=== PATIENT | male | born 1955 | race Caucasian/White ===

== ENCOUNTER 2018-08-09 12:02 | Day surgery (SDC) | payer BC, OTHER ==
[~2018-08-09] VITALS: Ht 180.3 cm; Wt 104.3 kg
[~2018-08-09 12:02] MED LIST: ASPI81TA21 PO; ATOR1TAB21 PO; CYCL5TAB PO; LANTINJ4 SC; LISI10TA4 PO; MAGN200T PO; METF10004 PO; NS 1,000 ML IV ONE; RABE1TAB PO; TRUL0.5I SC
[2018-08-09] MEDS ORDERED: PROPOFOL 200 MG/20 ML VIAL As Ordered ONE (14:06)
[2018-08-09] MEDS ORDERED: LIDOCAINE 2% INJ 100 MG/5 ML SDV (FOR ANES.) As Ordered ONE (14:06)
--- NOTE | 2018-08-09 14:25 | ROOR ---
Patient Name: Nghia Flores Procedure Date: 08/09/2018 1:55 PM Date of : 1955 Age: 63 Room: [facility] Gender: Male Note Status: Finalized Procedure: Colonoscopy Indications: Screening for colorectal malignant neoplasm Providers: Tuan Hampton Jr, MD Referring MD: Sirisha GUTIERREZ MD Requesting Provider: Medicines: Propofol per Anesthesia Complications: No immediate complications. Procedure: Pre-Anesthesia Assessment: - Prior to the procedure, a History and Physical was performed, and patient medications and allergies were reviewed. The patient is competent. The risks and benefits of the procedure and the sedation options and risks were discussed with the patient. All questions were answered and informed consent was obtained. Patient identification and proposed procedure were verified by the physician and the nurse in the pre-procedure area and in the procedure room. Mental Status Examination: alert and oriented. Airway Examination: normal oropharyngeal airway and neck mobility. Respiratory Examination: clear to auscultation. CV Examination: normal. ASA Grade Assessment: II - A patient with mild systemic disease. After reviewing the risks and benefits, the patient was deemed in satisfactory condition to undergo the procedure. The anesthesia plan was to use moderate sedation / analgesia (conscious sedation). Immediately prior to administration of medications, the patient was re-assessed for adequacy to receive sedatives. The heart rate, respiratory rate, oxygen saturations, blood pressure, adequacy of pulmonary ventilation, and response to care were monitored throughout the procedure. The physical status of the patient was re-assessed after the procedure. The Colonoscope was introduced through the anus and advanced to the cecum, identified by appendiceal orifice and ileocecal valve. The colonoscopy was performed without difficulty. The patient tolerated the procedure well. The quality of the bowel preparation was adequate. Findings: The recto-sigmoid colon, sigmoid colon, descending colon, transverse colon, ascending colon, cecum, appendiceal orifice and ileocecal valve appeared normal. A diminutive polyp was found in the rectum. The polyp was removed with a jumbo cold forceps. Resection and retrieval were complete. Impression: - The recto-sigmoid colon, sigmoid colon, descending colon, transverse colon, ascending colon, cecum, appendiceal orifice and ileocecal valve are normal. - One diminutive polyp in the rectum, removed with a jumbo cold forceps. Resected and retrieved. Recommendation: - Discharge patient to home (ambulatory). - Repeat colonoscopy in 5-10 years for surveillance based on pathology results. Tuan Hampton MD Tuan Hampton Jr, MD 08/09/2018 2:25:18 PM This report has been signed electronically. Number of Addenda: 0 Note Initiated On: 08/09/2018 1:55 PM Estimated Blood Loss: Estimated blood loss: none.
[2018-08-09 14:43] VITALS: BP 179/60
== END 2018-08-09 14:45 | disposition home or self-care (01) ==
LOC: M OPP 12:02
PROVIDERS: ATTEND Surgery
DX: K62.1 Rectal polyp (principal); Z12.11 Encounter for screening for malignant neoplasm of colon

== ENCOUNTER → 2020-08-04 | Outpatient (CLI) | payer BC, OTHER ==
[~2020-08-04] MED LIST changes: -NS 1,000 ML IV ONE
--- NOTE | 2020-08-06 14:34 | SLEEPHOME ---
DIAGNOSTIC HOME SLEEP TEST DATE: 08/04/2020 ORDERED BY: Vernon Delgado PA-C Diagnostic home sleep testing was performed due to concern for the obstructive sleep apnea syndrome. For testing, a nocturnal T3 respiratory monitoring device was used. Continuous record was made of pulse, oxygen saturation, air flow, chest and abdominal strain, and body position. 9 hours and 59 minutes of data were reviewed. There were 9 hours and 42 minutes marked as time in bed. During the interval marked time in bed, there were 202 respiratory events identified of 10 seconds in duration or greater for a respiratory event index 20.8. The events were primarily obstructive, though 53 mixed and central apneas were also seen. Events were not exclusive to position. Baseline pulse rate is 68 beats per minute. Pulse rate range 56 to 94. Baseline saturation was 91%. Saturations fell to 71%. Testing was performed in both the supine and non-supine positions. IMPRESSION: Abnormal home sleep testing with repetitive respiratory events and oxygen desaturations of 71% with a respiratory event index of 20.8 is consistent with the obstructive sleep apnea syndrome. The occurrence of central events raises the possibility of complex obstructive sleep apnea syndrome. RECOMMENDATION: The patient should be encouraged to pursue referral for a formal sleep assessment and is likely to require inpatient pressure titration.
== END ==
LOC: M SLEEP HO 09:53
PROVIDERS: ATTEND Physician Assistant
DX: R06.83 Snoring (principal)

== ENCOUNTER → 2020-10-01 | Outpatient (CLI) | payer BC, OTHER ==
[~2020-10-01] MED LIST changes: +GASTROGRAFIN SOLUTION 30ML (Q9963) As Ordered ONE; +ISOVUE-370 76% 100ML VIAL As Ordered ONE; +LISI10TA22 PO; -LISI10TA4 PO; -RABE1TAB PO; +RABE1TAB4 PO
--- NOTE | 2020-10-01 14:05 | REP ---
INDICATION: ABNORMAL LEVELS OF OTHER SERUM ENZYMES. COMPARISON: Comparison CT study December 05, 2008.. TECHNIQUE: Helical scanning is acquired and 3 mm axial images re-formatted. Coronal and sagittal MPR images are generated. The CT contrast enhancement dose is 100 mL of intravenous Isovue 370. FINDINGS: Preliminary digital mail forwarding system markup clerk radiograph shows clips in right upper quadrant consistent with previous cholecystectomy. The bowel gas pattern is unremarkable. The lung bases are clear on axial CT images. There is mild diffuse fatty infiltration of the liver, somewhat improved from the 2009 study. No focal liver lesion is seen. No biliary ductal dilation is observed. The spleen is normal in size homogeneous in texture. Pancreas are morphologically intact. No cyst or mass is seen. Normal adrenal glands are observed bilaterally. The kidneys enhance symmetrically and are morphologically normal. No stone, hydronephrosis or mass is seen. The left renal artery is duplicated. No other vascular abnormality is seen other than some vascular calcification. There is moderate stool content in the colon. No monico colonic dilation is seen. No small bowel obstruction or dilation is observed. The cecum is somewhat horizontally oriented in the right upper quadrant consistent with a mobile cecum. The very small normal appearing appendix is seen. Urinary bladder is unremarkable. Prostate is surgically absent. 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 This is unchanged. No abdominal wall defect is seen. No bony destructive lesion is appreciated. IMPRESSION: Mild fatty infiltration of the liver. Post cholecystectomy. Morphologically intact pancreas. No acute abdominal or pelvic abnormality seen. <Electronically signed by Sha Moore > 10/01/20 [id number]
== END ==
LOC: M RAD 11:41
PROVIDERS: ATTEND Physician Assistant
DX: R74.8 Abnormal levels of other serum enzymes (principal); K85.81 Other acute pancreatitis with uninfected necrosis; K76.0 Fatty (change of) liver, not elsewhere classified
CPT/HCPCS: 74177; Q9963; Q9967

== ENCOUNTER → 2020-10-24 | Outpatient (CLI) | payer BC, OTHER ==
[~2020-10-24] MED LIST changes: +ATOR80TA59 PO; +ECOT81TA5 PO; +FARX1TAB3 PO; -GASTROGRAFIN SOLUTION 30ML (Q9963) As Ordered ONE; -ISOVUE-370 76% 100ML VIAL As Ordered ONE; +SUCR1TAB56 PO
== END ==
LOC: M LABSMTC 09:07
PROVIDERS: ATTEND Anesthesiology
DX: Z01.812 Encounter for preprocedural laboratory examination (principal); Z20.822 Contact with and (suspected) exposure to COVID-19

== ENCOUNTER 2020-10-29 09:04 | Day surgery (SDC) | payer BC, OTHER ==
[~2020-10-29] VITALS: Ht 180.3 cm; Wt 99.3 kg
[~2020-10-29 09:04] MED LIST changes: +LIDOCAINE 2% 100MG/5ML SDV (FOR ANES.) As Ordered ONE; +NS 1,000 ML IV ONE; +fentaNYL 100 MCG/2 ML INJECTION (J3010) As Ordered ONE; +propofoL 200 MG/20 ML VIAL As Ordered ONE
--- NOTE | 2020-10-29 10:09 | ROOR ---
Patient Name: Nghia Flores Procedure Date: 10/29/2020 9:55 AM Date of : 1955 Age: 65 Room: [facility] Gender: Male Note Status: Finalized Procedure: Upper GI endoscopy Indications: Suspected esophageal reflux Providers: Tuan Hampton Jr, MD Referring MD: Hari Johnson Requesting Provider: Medicines: Propofol per Anesthesia Complications: No immediate complications. Procedure: Pre-Anesthesia Assessment: - Prior to the procedure, a History and Physical was performed, and patient medications and allergies were reviewed. The patient is competent. The risks and benefits of the procedure and the sedation options and risks were discussed with the patient. All questions were answered and informed consent was obtained. Patient identification and proposed procedure were verified by the physician and the nurse in the pre-procedure area and in the procedure room. Mental Status Examination: alert and oriented. Airway Examination: normal oropharyngeal airway and neck mobility. Respiratory Examination: clear to auscultation. CV Examination: normal. ASA Grade Assessment: II - A patient with mild systemic disease. After reviewing the risks and benefits, the patient was deemed in satisfactory condition to undergo the procedure. The anesthesia plan was to use moderate sedation / analgesia (conscious sedation). Immediately prior to administration of medications, the patient was re-assessed for adequacy to receive sedatives. The heart rate, respiratory rate, oxygen saturations, blood pressure, adequacy of pulmonary ventilation, and response to care were monitored throughout the procedure. The physical status of the patient was re-assessed after the procedure. The Endoscope was introduced through the mouth, and advanced to the second part of duodenum. The upper GI endoscopy was accomplished without difficulty. The patient tolerated the procedure well. Findings: The upper third of the esophagus, middle third of the esophagus and lower third of the esophagus were normal. The cardia, gastric fundus and gastric body were normal. Diffuse mildly erythematous mucosa without bleeding was found in the gastric antrum and in the prepyloric region of the stomach. Biopsies were taken with a cold forceps for histology. The duodenal bulb, first portion of the duodenum and second portion of the duodenum were normal. Impression: - Normal upper third of esophagus, middle third of esophagus and lower third of esophagus. - Normal cardia, gastric fundus and gastric body. - Erythematous mucosa in the antrum and prepyloric region of the stomach. Biopsied. ? bile gastritis. - Normal duodenal bulb, first portion of the duodenum and second portion of the duodenum. Recommendation: - Discharge patient to home (ambulatory). - Return to my office at appointment to be scheduled. Procedure Code(s): --- Professional --- 94163, Esophagogastroduodenoscopy, flexible, transoral; with biopsy, single or multiple Diagnosis Code(s): --- Professional --- K31.89, Other diseases of stomach and duodenum CPT copyright 2019 [employer]. All rights reserved. The codes documented in this report are preliminary and upon receiving manager review may be revised to meet current compliance requirements. Tuan Hampton MD Tuan Hampton Jr, MD 10/29/2020 10:08:53 AM Electronically signed by Tuan Hampton Jr, MD Number of Addenda: 0 Note Initiated On: 10/29/2020 9:55 AM Estimated Blood Loss: Estimated blood loss: none.
[2020-10-29 10:40] VITALS: BP 122/66
== END 2020-10-29 10:47 | disposition home or self-care (01) ==
LOC: M OPP 09:04
PROVIDERS: ATTEND Surgery
DX: K31.89 Other diseases of stomach and duodenum (principal); I10 Essential (primary) hypertension; E11.9 Type 2 diabetes mellitus without complications; G47.30 Sleep apnea, unspecified; Z79.899 Other long term (current) drug therapy; Z79.4 Long term (current) use of insulin; Z88.5 Allergy status to narcotic agent; Z87.891 Personal history of nicotine dependence
CPT/HCPCS: 43239; 88305; J3010

== ENCOUNTER → 2023-11-09 | Day surgery (SDC) | payer MEDICARE, BC, OTHER ==
[~2023-11-09] VITALS: Ht 177.8 cm; Wt 100.2 kg
[~2023-11-09] MED LIST changes: +ALOG25TA PO; +FINE10TA PO; -LIDOCAINE 2% 100MG/5ML SDV (FOR ANES.) As Ordered ONE; -NS 1,000 ML IV ONE; +SEMA0.257; -fentaNYL 100 MCG/2 ML INJECTION (J3010) As Ordered ONE; -propofoL 200 MG/20 ML VIAL As Ordered ONE
[2023-11-09] MEDS: NS 1,000 ML IV ONE (13:07)
[2023-11-09 14:59] VITALS: TEMP 97.6
[2023-11-09 15:55] VITALS: BP 148/70; O2SAT 95
== END | disposition home or self-care (01) ==
LOC: M OPP 11:57
PROVIDERS: ATTEND Surgery
DX: Z12.11 Encounter for screening for malignant neoplasm of colon (principal); Z86.010 Personal history of colon polyps; D12.3 Benign neoplasm of transverse colon; D12.7 Benign neoplasm of rectosigmoid junction; D12.8 Benign neoplasm of rectum; K29.71 Gastritis, unspecified, with bleeding; Z79.02 Long term (current) use of antithrombotics/antiplatelets; Z79.4 Long term (current) use of insulin; Z79.82 Long term (current) use of aspirin; Z79.891 Long term (current) use of opiate analgesic; Z79.899 Other long term (current) drug therapy

== ENCOUNTER → 2024-03-18 | Outpatient (CLI) | payer MEDICARE, BC | LOC: M CARPUL 10:48 | PROVIDERS: ATTEND Physician Assistant | DX: I71.9 Aortic aneurysm of unspecified site, without rupture (principal); I36.1 Nonrheumatic tricuspid (valve) insufficiency ==